=== PATIENT | female | born 1975 | race Caucasian/White ===

== ENCOUNTER → 2016-12-06 | Outpatient (CLI) | payer OTHER ==
--- NOTE | 2016-12-06 15:40 | MA ---
Diagnostic Digital Mammogram With iCAD Analysis Clinical Indications: Patient's healthcare provider detect a palpable asymmetry in the subareolar reg ion of the right breast. Technique: Standard cephalocaudal projections were obtained. Digital breast tomosynthesis was perform ed in the MLO projection with reconstruction at 1.0-mm slice thickness and composite MLO views recons tructed. A skin marker was placed in the region where the palpable abnormality was identified by the patient's healthcare provider. The patient was unable to detect a discrete abnormality herself. Also, a true lateral view of the right breast was performed. This examination was processed by the [employer]-aided detection system. Comparison: Baseline study; no previous mammograms have been performed. Breast density: Type C: Heterogeneously dense. Findings: CAD was reviewed. No masses, suspicious calcifications or secondary signs of malignancy are seen. Specifically, no abnormality is seen in the subareolar region of the right breast. Impression: Palpable area in the anterior right breast requires further evaluation. BI-RADS 0. Recommendation: Targeted right breast ultrasound which will be subsequently performed today. [facility] will send a result letter to the patient. Negative mammography should not preclude additional workup of a clinically suspicious finding. The patient's information is entered into a reminder system with a target due date for her next mammo gram.
--- NOTE | 2016-12-06 16:02 | US ---
Right Breast Ultrasound History: Evaluate palpable area in the subareolar region of the right breast detected by the patient' s healthcare provider. Technique: Longitudinal and transverse images were obtained utilizing a 15 MHz transducer. The study is interpreted in conjunction with diagnostic mammography performed earlier today. Findings: I do not detect a palpable asymmetry on my physical examination. Sonographic interrogation of the subareolar right breast demonstrates scattered fibroglandular elements. No solid or cystic mas s is seen. Impression: Negative findings when considering mammographic and sonographic assessment, BI-RADS 1. Recommendation: Resume routine mammographic screening in one year as long as physical examination is negative. Findings and followup recommendations were reviewed with the patient in detail. [facility] will send a result letter to the patient.
== END ==
LOC: FIMAGING 14:37
PROVIDERS: ATTEND Family Medicine Sports Medicine
DX: Z12.31 Encounter for screening mammogram for malignant neoplasm of breast (principal)
CPT/HCPCS: G0204; G0279

== ENCOUNTER → 2019-01-01 | Outpatient (CLI) | payer OTHER | LOC: FIMAGING 09:49 | PROVIDERS: ATTEND Orthopaedic Surgery | DX: M19.071 Primary osteoarthritis, right ankle and foot (principal); Z98.890 Other specified postprocedural states ==

== ENCOUNTER 2019-04-17 10:04 | Observation (INO) | payer OTHER ==
[2019-04-17] MEDS ORDERED: BUPIVACAINE 0.5% 30 ML SDV ONE (11:06)
[2019-04-17] MEDS ORDERED: MIDAZOLAM 2 MG/2 ML VIAL IVP ONE (11:07)
--- NOTE | 2019-04-17 11:08 | PDANEPAE ---
ANE History of Present Illness right ankle pain ANE Past Medical History - Cardiovascular History Hx Hypertension: No Hx Arrhythmias: No Hx Chest Pain: No Hx Coronary Artery / Peripheral Vascular Disease: No Hx CHF / Valvular Disease: No Hx Palpitations: No - Pulmonary History Hx COPD: No Hx Asthma/Reactive Airway Disease: Yes Hx Recent Upper Respiratory Infection: No Hx Oxygen in Use at Home: No Hx Sleep Apnea: No Sleep Apnea Screening Result - Last Documented: Negative Pulmonary History Comment: ALLERGY INDUCED ASTHMA - Neurologic History Hx Cerebrovascular Accident: No Hx Seizures: No Hx Dementia: No - Endocrine History Hx Diabetes: No Hypothyroid: No Hyperthyroid: No Obesity: no - Renal History Hx Renal Disorders: No Renal History Comment: PAST UTIs - Liver History Hx Hepatic Disorders: No - Neurological & Psychiatric Hx Hx Neurological and Psychiatric Disorders: No - Cancer History Hx Cancer: No - Congenital Disorder History Hx Congenital Disorders: No - GI History GERD: no Hx Gastrointestinal Disorders: No - Other Health History Other Health History: NEG - Chronic Pain History Chronic Pain: Yes (R ANKLE) - Surgical History Prior Surgeries: R ANKLE X3. C SECTION. TUBAL LIGATION. APPENDECTOMY ANE Review of Systems Review of systems is: negative Review of Systems: - Exercise capacity Exercise capacity: >=4 METS METS (RN): 5 METS ANE Patient History - Allergies Allergies/Adverse Reactions: Animals Allergy (Severe, Uncoded 06/16/10 11:41) Asthma Grasses Allergy (Severe, Uncoded 06/16/10 11:41) Asthma - Home Medications Home medications: home medication list seen and reviewed Home Medications: Albuterol [Proventil Inhaler HFA (*)] 1 - 2 puffs IH Q4H PRN 04/04/19 [Last Taken 04/17/19] Cholecalciferol Vit D3 [Vitamin D3 (*)] 1,000 units PO DAILY 04/04/19 [Last Taken Unknown] RX: Loratadine 10 mg PO DAILY PRN 04/04/19 [Last Taken Unknown] - NPO status NPO Status: no food or drink >8 hours - Anes Hx Anes Hx: post operative nausea - Smoking Hx Smoking Status: Current some day smoker ANE Labs/Vital Signs - Vital Signs Height: 157.48 cm Weight: 68.039 kg ANE Physical Exam - Airway Neck exam: FROM Mallampati Score: Class 2 Mouth exam: normal dental/mouth exam - Pulmonary Pulmonary: no respiratory distress, clear to auscultation - Cardiovascular Cardiovascular: regular rate and rhythym - ASA Status ASA Status: II ANE Anesthesia Plan Anesthesia Plan: GA w LMA Regional Anesthesia: single shot NB (saphenous), continuous NB (popliteal catheter)
[2019-04-17] MEDS ORDERED: LR 1,000 ML IV SCH (11:19)
[2019-04-17] MEDS ORDERED: ceFAZolin 2 GM/DEXTROSE 100 ML IV ONE (11:19)
[2019-04-17] MEDS ORDERED: ACETAMINOPHEN 500 MG TAB PO ONE (11:19)
[2019-04-17] MEDS ORDERED: BUPIVACAINE/EPI 0.5% 30 ML SDV ONE (11:44)
[2019-04-17] MEDS ORDERED: fentaNYL 100 MCG/2 ML INJ ONE ×2 (11:48→13:33)
--- NOTE | 2019-04-17 11:54 | PDHPUP ---
History & Physical Update H&P update statement: This history and physical update is based on an assessment of the patient which was completed after admission or registration (within 24 hours), but prior to the surgery/procedure. H&P update: H&P reviewed & patient examined, no change in patient's condition since H&P completed
[2019-04-17] MEDS ORDERED: PROPOFOL 200 MG/20 ML VIAL ONE ×3 (12:20→16:02)
[2019-04-17] MEDS ORDERED: PROPOFOL/EMULSION 500 MG/50 ML BOTTLE IV ONE ×4 (12:52→14:39)
[2019-04-17] MEDS ORDERED: DEXAMETHASONE 4 MG/ML VIAL ONE ×2 (13:11)
[2019-04-17] MEDS ORDERED: LABETALOL HCL 5 MG/ML 20 ML MDV IVP PRN (14:06)
[2019-04-17] MEDS ORDERED: NALOXONE HCL 0.4 MG/ML INJ IVP PRN (14:06)
[2019-04-17] MEDS ORDERED: METOCLOPRAMIDE 10 MG/2 ML VIAL IVP PRN (14:06)
[2019-04-17] MEDS ORDERED: fentaNYL 100 MCG/2 ML INJ IVP PRN (14:06)
[2019-04-17] MEDS ORDERED: ALBUTEROL 3 ML DEYVIAL IH PRN (14:06)
[2019-04-17] MEDS ORDERED: PROMETHAZINE HCL 25 MG/ML INJ IVP PRN (14:06)
[2019-04-17] MEDS ORDERED: DEXAMETHASONE 4 MG/ML VIAL IVP PRN (14:06)
[2019-04-17] MEDS ORDERED: MEPERIDINE 25 MG/0.5 ML AMP IVP PRN (14:06)
[2019-04-17] MEDS ORDERED: HYDROmorphONE/DILAUDID 1 MG/ML INJ IVP PRN (14:06)
[2019-04-17] MEDS ORDERED: oxyCODONE IR 5 MG TAB PO PRN ×2 (14:06→16:24)
[2019-04-17] MEDS ORDERED: ACETAMINOPHEN 500 MG TAB PO PRN (14:06)
[2019-04-17] MEDS ORDERED: ONDANSETRON 4 MG/2 ML VIAL IVP PRN ×2 (14:06→16:24)
[2019-04-17] MEDS ORDERED: PHENYLEPHRINE HCL 100 MCG/ML SYR IVP PRN (14:06)
[2019-04-17] MEDS ORDERED: LR 500 ML IV PRN (14:06)
[2019-04-17] MEDS ORDERED: ROPIVACAINE 0.2% 1,100 MG in PUMP SET 1 EA NB SCH (14:15)
[2019-04-17] MEDS ORDERED: ONDANSETRON 4 MG/2 ML VIAL ONE (15:44)
[2019-04-17] MEDS ORDERED: ALBUTEROL 60 PUFFS/8 GM MDI IH PRN (16:23)
[2019-04-17] MEDS ORDERED: ONDANSETRON DISINTEGRATING 4 MG TAB PO PRN (16:24)
[2019-04-17] MEDS ORDERED: TEMAZEPAM 15 MG CAP PO PRN (16:24)
[2019-04-17] MEDS ORDERED: NS 1,000 ML IV SCH (16:30)
--- NOTE | 2019-04-17 16:49 | POSTANESTH ---
Post Anesthetic Evaluation Cardiovascular Status: Normal, Stable Respiratory Status: Normal, Stable Level of Consciousness/Mental Status: Can Participate in Eval Pain Control: Adequate, Prn Tx Ordered Nausea/Vomiting Control: Adequate, Prn Tx Ordered Complications Possibly Related to Anesthesia: None Noted
[2019-04-17] MEDS: oxyCODONE IR 5 MG TAB PO PRN (18:47)
--- NOTE | 2019-04-17 20:02 | GOP ---
[f rep st] OPERATIVE REPORT DATE OF OPERATION: 04/17/2019 SURGEON: Dio Rush MD [employer] TANK: Rangel Schofield M.D. ANESTHESIA: General with indwelling popliteal block and saphenous block for postop pain control. PREOPERATIVE DIAGNOSIS: Right ankle arthritis, right subtalar arthritis, right ankle contracture and retained hardware. POSTOPERATIVE DIAGNOSIS: Right ankle arthritis, right subtalar arthritis, right ankle contracture and retained hardware. PROCEDURE PERFORMED: 1. Right tendo-Achilles lengthening. 2. Right total ankle arthroplasty. 3. Right ankle hardware removal. 4. Right ankle subtalar fusion. FINDINGS: SPECIMENS: None. ESTIMATED BLOOD LOSS: 100 mL. INDICATIONS: This is a female with the above diagnosis. 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 She had failed conservative management and elected to proceed with the above surgery. We discussed risks of stiffness, continued pain, implant failure, loosening, need for fusion, nerve injury, blood clots, swelling and she elected to proceed. Informed consent and all questions were answered. She was marked preoperatively. DESCRIPTION OF PROCEDURE: She was taken to the operative suite and sterilely prepped and draped in usual fashion. Time-out was performed verifying site, side , location and there was agreement with the team. I performed an Achilles tendon lengthening with a triple step cut while holding the foot in dorsiflexion. I made an anterior incision approach to the ankle, protecting neurovascular structures. This was extremely arthritic in nature. I also made the subtalar exposure to the sinus tarsi and exposed the subtalar joint which is arthritic. I prepared the subtalar joint for fusion by removing any remaining cartilage of subchondral bone by fenestrating the bone. I then cleaned out the gutters and the soft tissue off the tibia and talus, used the tibial cutting block. Pinned this and checked this fluoroscopically and placed the guide, checked this fluoroscopically and then made the tibial cuts. I removed this bone. I removed 2 of the screws out of the talus. Then the back 2 screws were left in place. I used the talar cutting block and pinned this. Checked this fluoroscopically, placed the guide and cut this. I did have to angle the cut somewhat to avoid the screws. I then removed this bone and was able to get the remaining 2 screws out the cut area. I then completed the cut to get a flat cut talus after removing the screws. The gutters were cleaned and the impingement was removed. I made a bone graft out of some of the talar and tibial bone. I placed this in the subtalar joint. I then completed the preparation for the tibia and talus with a guide. I selected the 3 tibia, 2 talus and a small 6 mm poly. I then implanted the components without the poly. I then fused the subtalar joint by placing a 7.0 headless screw across the joint and a 5.0 headless screw from each direction. I took x-rays confirming this. Malleted the talus into the final position and then checked fluoroscopically, placed the poly, checked this fluoroscopically. She had improved range of motion. In the ankle, the subtalar joint was solid. She was irrigated, closed with #1 Vicryl, 0 Vicryl, 2-0 Vicryl, 3-0 Quill____3.0 nylon in the anterior ankle incision. She is splinted and taken to PACU in stable condition. COMPLICATIONS: None. DRAINS: None. CONDITION: Stable. /[id number]/MODL MTDD
[2019-04-17] MEDS: ceFAZolin 2 GM/DEXTROSE 100 ML IV SCH (21:40)
[2019-04-18] MEDS: ceFAZolin 2 GM/DEXTROSE 100 ML IV SCH (05:05)
[2019-04-18] MEDS: oxyCODONE IR 5 MG TAB PO PRN ×2 (05:47→10:26)
--- NOTE | 2019-04-18 08:06 | SOAPPROG ---
SOAP Progress Note Assessment/Plan: Assessment: R TAA and subtalar fusion Plan: Home today ASA for dvt prophalaxsis non wt bearing RLE 04/18/19 08:05 Subjective: pain controlled Objective: Vital Signs Temp Pulse Resp BP Pulse Ox 36.2 C 71 16 105/59 L 96 04/18/19 04:57 04/18/19 04:57 04/18/19 04:57 04/18/19 04:57 04/18/19 04:57 04/17/19 04/18/19 04/19/19 05:59 05:59 05:59 Intake Total 3800 Output Total 2755 Balance 1045 splint intact ICD10 Worksheet Patient Problems: Problems Problem Status Onset Ankle arthritis Acute - ICD10 Problem Qualifiers (1) Ankle arthritis
[2019-04-18 08:15] VITALS: BP 117/66
--- NOTE | 2019-04-18 08:28 | GDS ---
[f rep st] DISCHARGE SUMMARY CHIEF COMPLAINT: Status post right total ankle plasty and subtalar fusion. HOSPITAL COURSE: She did well recovering. She had some nausea but this was controlled with medicati on. She met criteria for discharge the next day. CONSULTING PHYSICIANS: None. SURGERIES: Right total ankle and subtalar fusion, hardware removal and tendo Achillis lengthening. DISPOSITION: She is sent home on a regular diet. She is sent home with an aspirin 325 mg once a day for DVT prophylaxis on her previous home medications and she was given prescriptions for oxycodone a nd Ultram prior to the surgery, as well as Zofran to use. She will elevate and ice. She will be non weightbearing. She will come back to the clinic for followup in a week. She will follow up sooner o r go to the ER if she has chest pain, shortness of breath, increased pain, swelling, drainage, tightn ess, numbness or is otherwise concerned. /[id number]/MODL
--- NOTE | 2019-04-18 08:34 | PDPAINCON ---
Pain Management Consultation Patient referred by : Victor Manuel - Subjective Pain is: low, well controlled Activity: participating in PT - Objective Technique: continuous peripheral nerve block (popliteal sciatic catheter running ropivicaine 0.2% at 8 ml/hr) Catheter site: clean, dry, intact Sensory and motor exam: consistent with block Vital signs: stable - Assessment/Plan Assessment/Plan: pain well-controlled, continue current mgmt Additional comments: POD 1 s/p R ankle fusion with popliteal sciatic catheter running 0.2% ropivacaine at 8 ml/hr. Doing very well, pain is mild with movement otherwise imperceptible. Denies adverse effects. Planned to go home this afternoon with OnQ pump. Removal instructions provided. Will continue to follow via phone.
[2019-04-18] MEDS ORDERED: CETIRIZINE 10 MG TAB PO PRN (09:00)
[2019-04-18] MEDS ORDERED: CHOLECALCIFEROL VIT D3 1,000 UNITS TAB PO SCH (09:00)
--- NOTE | 2019-04-18 11:50 | ASMTLACE ---
H[facility]ACE Length of stay for Answers: 2 days current admission Acuity / Level of Answers: No Care: Did the patient have an inpatient admission? # of Emergency department Answers: 0 visits in the last 6 months Score: 2 Date Signed: 04/18/2019 11:49 AM Electronically Signed By:SWAPNA Siddiqui
--- NOTE | 2019-04-18 11:51 | ASMTCMCOM ---
CM Note CM Note Notes: Pt had planned OA of ankle/foot, resides with spouse and minor children. PT rec home/outpatient. No CM d/c needs identified. Date Signed: 04/18/2019 11:50 AM Electronically Signed By:SWAPNA Siddiqui
== END 2019-04-18 11:10 | disposition home or self-care (01) ==
LOC: F3N 10:04
PROVIDERS: ADMIT Orthopaedic Surgery; ATTEND Orthopaedic Surgery
DX: M19.071 Primary osteoarthritis, right ankle and foot (principal); M67.01 Short Achilles tendon (acquired), right ankle; J45.909 Unspecified asthma, uncomplicated
CPT/HCPCS: 27702; 76000; 97161; G0378; C1713; J0690; J1100; J2250; J2405; J2704; J2795; J3010